=== PATIENT | female | born 1995 | race American Indian/Alaskan Native ===

== ENCOUNTER 2020-08-03 15:15 | Observation (INO) | payer OTHER ==
[2020-08-03 16:48] LABS: Bacteria,Urine 1+ /HPF (Negative); Bilirubin,Urine NEG (Negative); Blood,Urine MOD (Negative); Color,Urine Yellow (Yellow); Mucus,Urine FEW /HPF; Protein,Urine <15 mg/dL mg/dL (Negative); Urobilinogen,Urine < 2.0 mg/dL (<2.0)
[2020-08-03] MEDS: LACTATED RINGERS 1,000 ML IV SCH ×2 (18:03→20:49)
[2020-08-03] MEDS ORDERED: PE/MO/PET,WH 10 APPLIC/28 GM TUBE PR PRN (18:53)
[2020-08-03] MEDS ORDERED: WITCH HAZEL/ GLYCERIN PAD TP PRN (18:53)
--- NOTE | 2020-08-03 19:21 | Ultrasound Report ---
Limited obstetrical ultrasound with biophysical profile. HISTORY: Evaluate well-being. FINDINGS: A single viable intrauterine in the cephalic position has heart tones of 16 0 bpm. Amniotic fluid index is normal at 12.9 cm. Biophysical profile is normal at 8/8. IMPRESSION: 1. Normal biophysical profile. 2. Single viable intrauterine in the cephalic position with normal LELO. Signer Name: Delta Mireles MD Signed: 08/03/2020 7:17 PM Workstation Name: [id number]
[2020-08-04 08:12] VITALS: BP 131/81
--- NOTE | 2020-08-04 09:39 | Progress Note ---
Subjective - Subjective Date of service: 08/04/20 Interval history: OBS for NRFHT in OB triage BPP / NST reactive, Category 1 not in labor, and maternal well being reassuring overall Mayito Billings MD Objective - Vital Signs Vital Signs: Vital Signs - 12hr 08/03/20 08/03/20 08/03/20 21:41 21:46 21:51 Temperature Pulse Rate 58 L 103 H 107 H Respiratory Rate Blood Pressure Blood Pressure [Right] O2 Sat by Pulse 85 97 96 Oximetry 08/03/20 08/03/20 08/03/20 21:56 22:01 22:06 Temperature Pulse Rate 97 H 105 H 99 H Respiratory Rate Blood Pressure Blood Pressure [Right] O2 Sat by Pulse 97 96 97 Oximetry 08/03/20 08/03/20 08/03/20 22:10 22:11 22:16 Temperature Pulse Rate 97 H 94 H 98 H Respiratory Rate Blood Pressure Blood Pressure [Right] O2 Sat by Pulse 94 95 96 Oximetry 08/03/20 08/03/20 08/03/20 22:21 22:26 22:31 Temperature Pulse Rate 98 H 101 H 93 H Respiratory Rate Blood Pressure Blood Pressure [Right] O2 Sat by Pulse 97 97 98 Oximetry 08/03/20 08/03/20 08/03/20 22:36 22:41 22:46 Temperature Pulse Rate 94 H 95 H 95 H Respiratory Rate Blood Pressure Blood Pressure [Right] O2 Sat by Pulse 98 98 99 Oximetry 08/03/20 08/03/20 08/03/20 22:51 22:56 23:01 Temperature Pulse Rate 96 H 92 H 98 H Respiratory Rate Blood Pressure Blood Pressure [Right] O2 Sat by Pulse 97 96 97 Oximetry 08/03/20 08/03/20 08/03/20 23:06 23:11 23:18 Temperature Pulse Rate 101 H 100 H 89 Respiratory Rate Blood Pressure 125/80 Blood Pressure [Right] O2 Sat by Pulse 97 98 Oximetry 08/03/20 08/03/20 08/03/20 23:25 23:30 23:35 Temperature Pulse Rate 124 H 105 H 94 H Respiratory Rate Blood Pressure Blood Pressure [Right] O2 Sat by Pulse 86 99 98 Oximetry 08/03/20 08/03/20 08/03/20 23:40 23:45 23:48 Temperature Pulse Rate 104 H 108 H 83 Respiratory Rate Blood Pressure Blood Pressure [Right] O2 Sat by Pulse 98 98 94 Oximetry 08/03/20 08/03/20 08/04/20 23:50 23:55 00:00 Temperature Pulse Rate 100 H 86 99 H Respiratory Rate Blood Pressure Blood Pressure [Right] O2 Sat by Pulse 98 100 99 Oximetry 08/04/20 08/04/20 08/04/20 00:03 00:05 00:10 Temperature 98.3 F Pulse Rate 93 H 97 H Respiratory Rate Blood Pressure Blood Pressure [Right] O2 Sat by Pulse 99 96 Oximetry 08/04/20 08/04/20 08/04/20 00:15 00:20 00:25 Temperature Pulse Rate 100 H 104 H 94 H Respiratory Rate Blood Pressure Blood Pressure [Right] O2 Sat by Pulse 97 94 99 Oximetry 08/04/20 08/04/20 08/04/20 00:30 00:35 00:40 Temperature Pulse Rate 85 93 H 98 H Respiratory Rate Blood Pressure Blood Pressure [Right] O2 Sat by Pulse 97 98 98 Oximetry 08/04/20 08/04/20 08/04/20 00:45 00:50 00:55 Temperature Pulse Rate 101 H 107 H 100 H Respiratory Rate Blood Pressure Blood Pressure [Right] O2 Sat by Pulse 98 99 96 Oximetry 08/04/20 08/04/20 08/04/20 01:00 01:05 01:09 Temperature Pulse Rate 96 H 97 H 103 H Respiratory Rate Blood Pressure Blood Pressure [Right] O2 Sat by Pulse 95 97 87 Oximetry 08/04/20 08/04/20 08/04/20 01:10 01:15 01:20 Temperature Pulse Rate 98 H 96 H 95 H Respiratory Rate Blood Pressure Blood Pressure [Right] O2 Sat by Pulse 97 97 98 Oximetry 08/04/20 08/04/20 08/04/20 01:25 01:30 01:35 Temperature Pulse Rate 95 H 90 94 H Respiratory Rate Blood Pressure Blood Pressure [Right] O2 Sat by Pulse 100 99 99 Oximetry 08/04/20 08/04/20 08/04/20 01:40 01:45 01:50 Temperature Pulse Rate 89 87 100 H Respiratory Rate Blood Pressure Blood Pressure [Right] O2 Sat by Pulse 98 99 98 Oximetry 08/04/20 08/04/20 08/04/20 01:55 02:00 02:05 Temperature Pulse Rate 92 H 95 H 89 Respiratory Rate Blood Pressure Blood Pressure [Right] O2 Sat by Pulse 98 99 98 Oximetry 08/04/20 08/04/20 08/04/20 02:17 02:22 02:27 Temperature Pulse Rate 90 89 85 Respiratory Rate Blood Pressure Blood Pressure [Right] O2 Sat by Pulse 99 99 98 Oximetry 08/04/20 08/04/20 08/04/20 02:32 02:37 02:42 Temperature Pulse Rate 100 H 89 102 H Respiratory Rate Blood Pressure Blood Pressure [Right] O2 Sat by Pulse 99 98 99 Oximetry 08/04/20 08/04/20 08/04/20 02:47 02:52 02:57 Temperature Pulse Rate 82 101 H 83 Respiratory Rate Blood Pressure Blood Pressure [Right] O2 Sat by Pulse 98 97 96 Oximetry 08/04/20 08/04/20 08/04/20 03:02 03:07 03:12 Temperature Pulse Rate 90 93 H 101 H Respiratory Rate Blood Pressure Blood Pressure [Right] O2 Sat by Pulse 99 99 99 Oximetry 08/04/20 08/04/20 08/04/20 03:17 03:22 03:27 Temperature Pulse Rate 112 H 105 H 89 Respiratory Rate Blood Pressure Blood Pressure [Right] O2 Sat by Pulse 99 98 100 Oximetry 08/04/20 08/04/20 08/04/20 03:32 03:37 03:42 Temperature Pulse Rate 99 H 106 H 104 H Respiratory Rate Blood Pressure Blood Pressure [Right] O2 Sat by Pulse 100 99 99 Oximetry 08/04/20 08/04/20 08/04/20 03:47 04:04 04:09 Temperature Pulse Rate 101 H 89 94 H Respiratory Rate Blood Pressure Blood Pressure [Right] O2 Sat by Pulse 99 100 100 Oximetry 08/04/20 08/04/20 08/04/20 04:14 04:19 04:24 Temperature Pulse Rate 100 H 90 95 H Respiratory Rate Blood Pressure Blood Pressure [Right] O2 Sat by Pulse 98 100 99 Oximetry 08/04/20 08/04/20 08/04/20 04:29 04:32 04:34 Temperature Pulse Rate 92 H 100 H 96 H Respiratory Rate Blood Pressure Blood Pressure [Right] O2 Sat by Pulse 99 92 99 Oximetry 08/04/20 08/04/20 08/04/20 04:39 04:44 04:49 Temperature Pulse Rate 86 90 91 H Respiratory Rate Blood Pressure Blood Pressure [Right] O2 Sat by Pulse 98 98 97 Oximetry 08/04/20 08/04/20 08/04/20 04:54 04:59 05:04 Temperature Pulse Rate 90 90 117 H Respiratory Rate Blood Pressure Blood Pressure [Right] O2 Sat by Pulse 99 99 98 Oximetry 08/04/20 08/04/20 08/04/20 05:09 05:14 05:19 Temperature Pulse Rate 88 94 H 91 H Respiratory Rate Blood Pressure Blood Pressure [Right] O2 Sat by Pulse 97 97 97 Oximetry 08/04/20 08/04/20 08/04/20 05:24 05:29 05:34 Temperature Pulse Rate 88 92 H 90 Respiratory Rate Blood Pressure Blood Pressure [Right] O2 Sat by Pulse 98 96 97 Oximetry 08/04/20 08/04/20 08/04/20 05:39 05:44 05:49 Temperature Pulse Rate 90 89 87 Respiratory Rate Blood Pressure Blood Pressure [Right] O2 Sat by Pulse 97 97 97 Oximetry 08/04/20 08/04/20 08/04/20 05:54 05:59 06:04 Temperature Pulse Rate 94 H 90 90 Respiratory Rate Blood Pressure Blood Pressure [Right] O2 Sat by Pulse 98 98 97 Oximetry 08/04/20 08/04/20 08/04/20 06:09 06:13 06:18 Temperature Pulse Rate 88 110 H 66 Respiratory Rate Blood Pressure Blood Pressure [Right] O2 Sat by Pulse 97 90 82 L Oximetry 08/04/20 08/04/20 08/04/20 06:23 06:28 06:33 Temperature Pulse Rate 94 H 103 H 100 H Respiratory Rate Blood Pressure Blood Pressure [Right] O2 Sat by Pulse 99 99 100 Oximetry 08/04/20 08/04/20 08/04/20 06:38 06:43 06:45 Temperature Pulse Rate 96 H 98 H 91 H Respiratory Rate Blood Pressure 121/59 Blood Pressure [Right] O2 Sat by Pulse 99 99 Oximetry 08/04/20 08/04/20 08/04/20 06:46 06:48 06:52 Temperature 98.4 F Pulse Rate 91 H 93 H 98 H Respiratory 18 Rate Blood Pressure Blood Pressure [Right] O2 Sat by Pulse 94 98 94 Oximetry 08/04/20 08/04/20 08/04/20 06:53 06:58 07:03 Temperature Pulse Rate 86 84 88 Respiratory Rate Blood Pressure Blood Pressure [Right] O2 Sat by Pulse 98 99 95 Oximetry 08/04/20 08/04/20 08/04/20 07:06 07:08 07:13 Temperature Pulse Rate 86 96 H 90 Respiratory Rate Blood Pressure Blood Pressure [Right] O2 Sat by Pulse 94 96 95 Oximetry 08/04/20 08/04/20 08/04/20 07:15 07:18 07:23 Temperature Pulse Rate 90 87 98 H Respiratory Rate Blood Pressure Blood Pressure [Right] O2 Sat by Pulse 94 94 97 Oximetry 08/04/20 08/04/20 08/04/20 07:28 07:29 07:33 Temperature Pulse Rate 89 84 90 Respiratory Rate Blood Pressure Blood Pressure [Right] O2 Sat by Pulse 96 94 96 Oximetry 08/04/20 08/04/20 08/04/20 07:43 07:48 07:51 Temperature Pulse Rate 88 89 93 H Respiratory Rate Blood Pressure Blood Pressure [Right] O2 Sat by Pulse 95 96 92 Oximetry 08/04/20 08/04/20 08/04/20 07:53 07:58 08:03 Temperature Pulse Rate 40 L 93 H 100 H Respiratory Rate Blood Pressure Blood Pressure [Right] O2 Sat by Pulse 97 99 99 Oximetry 08/04/20 08/04/20 08/04/20 08:07 08:08 08:11 Temperature 99.0 F Pulse Rate 103 H 94 H 93 H Respiratory 22 Rate Blood Pressure 131/81 Blood Pressure 131/81 [Right] O2 Sat by Pulse 99 99 Oximetry 08/04/20 08/04/20 08/04/20 08:13 08:18 08:23 Temperature Pulse Rate 85 91 H 95 H Respiratory Rate Blood Pressure Blood Pressure [Right] O2 Sat by Pulse 99 99 100 Oximetry 08/04/20 08/04/20 08/04/20 08:28 08:33 08:38 Temperature Pulse Rate 102 H 98 H 88 Respiratory Rate Blood Pressure Blood Pressure [Right] O2 Sat by Pulse 99 100 99 Oximetry 08/04/20 08/04/20 08/04/20 08:43 08:48 08:53 Temperature Pulse Rate 89 98 H 88 Respiratory Rate Blood Pressure Blood Pressure [Right] O2 Sat by Pulse 99 100 99 Oximetry 08/04/20 08/04/20 08/04/20 08:58 09:03 09:08 Temperature Pulse Rate 89 105 H 99 H Respiratory Rate Blood Pressure Blood Pressure [Right] O2 Sat by Pulse 100 98 100 Oximetry 08/04/20 08/04/20 08/04/20 09:13 09:18 09:23 Temperature Pulse Rate 104 H 108 H 103 H Respiratory Rate Blood Pressure Blood Pressure [Right] O2 Sat by Pulse 99 98 99 Oximetry 08/04/20 08/04/20 09:28 09:35 Temperature Pulse Rate 98 H 91 H Respiratory Rate Blood Pressure Blood Pressure [Right] O2 Sat by Pulse 99 100 Oximetry - Labs Labs: Laboratory Results - last 24 hr 08/03/20 Unknown Urine Color Yellow Urine Turbidity Clear Urine pH 7.0 Ur Specific [place] 1.012 Urine Protein <15 mg/dl Urine Glucose (UA) Neg Urine Ketones Neg Urine Blood Mod Urine Nitrite Neg Urine Bilirubin Neg Urine Urobilinogen < 2.0 Ur Leukocyte Esterase Neg Urine WBC (Auto) 1.0 Urine RBC (Auto) 2.0 U Epithel Cells (Auto) 2.0 Urine Bacteria (Auto) 1+ Urine Mucus Few
[2020-08-04] MEDS ORDERED: NITROFURANTOIN MONOHYD/M-CRYST 100 MG CAP PO SCH (10:00)
== END 2020-08-04 10:10 | disposition home or self-care (01) ==
LOC: TRG 15:15 → LD 15:15 → APU 15:16 → TRG 18:47 → LD 18:47
PROVIDERS: ADMIT Obstetrics & Gynecology; ATTEND Obstetrics & Gynecology
DX: O36.8330 Maternal care for abnormalities of the fetal heart rate or rhythm, third trimester, not applicable or unspecified (principal); Z3A.36 36 weeks gestation of pregnancy
CPT/HCPCS: 76815; 76819; 81001; G0378; J7120; 59025; 96360

== ENCOUNTER 2020-08-04 23:21 | Outpatient (CLI) | payer OTHER ==
[2020-08-05] MEDS ORDERED: LACTATED RINGERS 1,000 ML IV ONE (04:15)
--- NOTE | 2020-08-05 04:33 | Ultrasound Report ---
ULTRASOUND OBSTETRIC LIMITED ULTRASOUND BIOPHYSICAL PROFILE INDICATION / CLINICAL INFORMATION: wellbeing. LELO Clinical Gestational Age (GA): weeks.days COMPARISON: None available. FINDINGS: BREATHING MOVEMENT = 2 GROSS BODY MOVEMENT = 2 TONE = 2 QUALITATIVE AMNIOTIC FLUID VOLUME = 2 TOTAL BIOPHYSICAL SCORE = 8/8 HEART RATE (beats per minute): 146 AMNIOTIC FLUID INDEX (cm) = 8.6 (normal = 7-24 cm) PRESENTATION: Cephalic. ADDITIONAL FINDINGS: None. IMPRESSION: 1. Biophysical Score = 8/8 2. LELO 8.6 cm. Signer Name: Felipe Anderson MD Signed: 08/05/2020 4:29 AM Workstation Name: [id number]
== END 2020-08-05 06:43 | disposition home or self-care (01) ==
LOC: TRG 23:21 → APU 08-05 03:19 → TRG 08-05 06:43
PROVIDERS: ATTEND Obstetrics & Gynecology
DX: O26.893 Other specified pregnancy related conditions, third trimester (principal); R25.2 Cramp and spasm; N89.8 Other specified noninflammatory disorders of vagina; Z3A.37 37 weeks gestation of pregnancy
CPT/HCPCS: 59025; 76815; 76819; 96360; J7120

== ENCOUNTER 2020-08-07 15:56 | Outpatient (CLI) | payer OTHER ==
[2020-08-07 18:06] VITALS: BP 128/76
--- NOTE | 2020-08-07 18:30 | Ultrasound Report ---
ULTRASOUND BIOPHYSICAL PROFILE INDICATION: BPP. COMPARISON: None available. FINDINGS: BREATHING MOVEMENT = 2 GROSS BODY MOVEMENT = 2 TONE = 2 QUALITATIVE AMNIOTIC FLUID VOLUME = 2 TOTAL BIOPHYSICAL SCORE = 11/19 AMNIOTIC FLUID INDEX (cm) = 10.9 PRESENTATION: Cephalic. HEART RATE (beats per minute): 167 IMPRESSION: 1. biophysical profile = 11/19 Signer Name: Mahesh Sage MD Signed: 08/07/2020 6:25 PM Workstation Name: [id number]
== END 2020-08-07 18:23 | disposition home or self-care (01) ==
LOC: TRG 15:56 → APU 15:57 → TRG 18:23
PROVIDERS: ATTEND Obstetrics & Gynecology
DX: Z34.93 Encounter for supervision of normal pregnancy, unspecified, third trimester (principal); Z3A.37 37 weeks gestation of pregnancy
CPT/HCPCS: 59025; 76815; 76819

== ENCOUNTER 2020-08-29 15:09 | Inpatient (IN) | payer OTHER ==
[2020-08-29] MEDS ORDERED: LIDOCAINE (2%) 20 MG/1 ML VIAL 20 ML MDV INFILTRATI ONE (19:02)
[2020-08-29] MEDS ORDERED: ePHEDrine SULFATE 50 MG/1 ML INJ IV PRN (19:02)
[2020-08-29] MEDS ORDERED: TERBUTALINE 1 MG/1 ML INJ SUB-Q PRN (19:02)
[2020-08-29] MEDS ORDERED: MINERAL OIL 30 ML ORAL LIQD PO PRN (19:02)
[2020-08-29] MEDS ORDERED: PROMETHAZINE 25 MG RECT SUPP PR PRN (19:02)
[2020-08-29] MEDS ORDERED: BUTORPHANOL 2 MG/1 ML INJ IV PRN ×2 (19:02)
[2020-08-29] MEDS ORDERED: ACETAMINOPHEN 325 MG TAB PO PRN (19:02)
[2020-08-29] MEDS ORDERED: ONDANSETRON 4 MG/2 ML INJ IV PRN (19:02)
--- NOTE | 2020-08-29 19:02 | History and Physical Report ---
History of Present Illness Date of examination: 08/29/20 Chief complaint: IOL History of present illness: 25 yo A1 at 40w4d (KADY 08/25/20) c/b Class III Obesity, hx microscopic hematuria (neg urology workup), SMA Carrier, h/o overactive bladder, Rubella NI presenting for postdates IOL. Intermittent contractions. Denies vaginal bleeding or leakage of fluid. Denies PIH symptoms. PNC labs reviewed, of note Rubella NI GBS neg Past History Past Medical History: other (hx microscopic hematuria, SMA carrier) Past Surgical History: D&C (for elective Ab) Family/Genetic History: hypertension Social history: no significant social history - Obstetrical History : 4 Para: 2 Hx # Term Pregnancies: 2 Induced : 1 Number of Living Children: 2 Medications and Allergies Allergies Allergy/AdvReac Type Severity Reaction Status Date / Time No Known Allergies Allergy Verified 08/07/20 16:52 Home Medications Medication Instructions Recorded Confirmed Last Taken Type Fluconazole [Diflucan TAB] 100 mg PO QDAY 3 Days tablet 08/04/20 08/07/20 Unknown Rx Nitrofurantoin Fisher/M-Cryst 100 mg PO Q12HR #14 capsule 08/04/20 08/07/20 Unknown Rx [Macrobid CAP] No.137/Iron/Folic Acd 1 tab PO DAILY 08/07/20 08/07/20 07/31/20 History [[facility] Tablet] Review of Systems All systems: negative (expect HPI) - Physical Exam Abdomen: Positive: normal appearance, normal bowel sounds, other (gravid) Uterus: Positive: enlarged - Obstetrical FHR: category 1 Uterine Contraction Monitor Mode: External Cervical Dilatation: 4 Cervical Effacement Percentage: 70 station: -3 Uterine Contraction Pattern: Irregular Results All other labs normal. Assessment and Plan - Patient Problems (1) Post-dates Current Visit: Yes Status: Acute Qualifiers: Post-term type: 40-42 weeks gestation Qualified Code(s): O48.0 - Post-term Plan to address problem: For IOL for postdates gestation, KADY 08/25/20. --GBS neg --Pitocin per protocol for IOL --Pain management per protocol, ok for epidural if desired --Anticipate
[2020-08-29 19:28] LABS: Hematocrit 22.7 % (30.3-42.9); Hemoglobin 7.6 gm/dl (10.1-14.3); Mean Corpuscular HGB Conc 34 % (30-34); Mean Corpuscular Volume 94 fl (79-97); Platelet Count 359 K/mm3 (140-440); Red Blood Count 2.41 M/mm3 (3.65-5.03); Red Cell Distribution Width 14.7 % (13.2-15.2)
[2020-08-29] MEDS ORDERED: OXYTOCIN DRIP 30 UNITS/500 ML BAG IV SCH (20:00)
[2020-08-29] MEDS: LACTATED RINGERS 1,000 ML IV SCH (20:30)
[2020-08-29] MEDS: OXYTOCIN DRIP 30 UNITS/500 ML BAG IV SCH (22:01)
[2020-08-30] MEDS: LACTATED RINGERS 1,000 ML IV SCH (01:06)
[2020-08-30] MEDS ORDERED: NalbUPHINE 10 MG/1 ML INJ IV PRN (01:42)
[2020-08-30] MEDS ORDERED: ePHEDrine SULFATE 50 MG/1 ML INJ IV PRN (01:42)
[2020-08-30] MEDS ORDERED: LACTATED RINGERS 250 ML IV SOLN IV ONE (01:42)
[2020-08-30] MEDS ORDERED: diphenhydrAMINE 50 MG/ML VIAL IV PRN (01:42)
[2020-08-30] MEDS ORDERED: NALOXONE 2 MG/2 ML INJ IV PRN (01:42)
[2020-08-30] MEDS ORDERED: LACTATED RINGERS 250 ML IV ONE (02:00)
[2020-08-30] MEDS ORDERED: fentaNYL-BUPIV 2 MCG/ML-0.125% 200 MCG/100 ML BAG EPIDURAL SCH (02:00)
--- NOTE | 2020-08-30 02:17 | Anesthesia Consultation ---
Anesthesia Consult and Med Hx Date of service: 08/30/20 - Airway Anesthetic Teeth Evaluation: Good ROM Head & Neck: Adequate Mental/Hyoid Distance: Adequate Mallampati Class: Class III Intubation Access Assessment: Possibly Difficult - Pulmonary Exam CTA: Yes - Cardiac Exam Cardiac Exam: RRR - Pre-Operative Health Status ASA Pre-Surgery Classification: ASA2 Proposed Anesthetic Plan: Epidural - Pulmonary Hx Smoking: No Hx Asthma: No COPD: No Hx Pneumonia: No Hx Sleep Apnea: No - Cardiovascular System Hx Hypertension: No Hx Heart Attack/AMI: No Hx Angina: No - Central Nervous System Hx Seizures: No Hx Psychiatric Problems: No - Gastrointestinal Hx Gastroesophageal Reflux Disease: No - Endocrine Hx Renal Disease: No Hx End Stage Renal Disease: No Hx Liver Disease: No Hx Insulin Dependent Diabetes: No Hx Non-Insulin Dependent Diabetes: No Hx Hypothyroidism: No Hx Hyperthyroidism: No - Hematic Hx Anemia: Yes Hx Sickle Cell Disease: No - Other Systems Hx Alcohol Use: No Hx Obesity: Yes
--- NOTE | 2020-08-30 02:18 | Progress Note ---
Labor Epidural - Labor Epidural Start Time: 01:54 Stop Time: 02:16 Performed by:: MARGAUX SYKES ([facility]) Procedure: Patient is requesting epidural for labor and pain. H&P, labs were reviewed. Patient IDed, H&P reviewed, all questions and concerns were answered, and consent was signed. Timeout was performed at bedside. Patient in sitting position. Sterile prep and drape was performed. 3ml of 1% lidocaine skin wheal at L[3]- L [4]. 18-gauge Tuohy epidural needle was advanced to loss of resistance with air technique 8cm. Negative CSF negative blood. Epidural catheter advanced to [14] centimeters. [negative] Aspiration [negative] test dose. Sterile dressing applied. Patient tolerated procedure.
[2020-08-30] MEDS ORDERED: hydrOXYzine PAMOATE 25 MG CAP PO NR (08:00)
--- NOTE | 2020-08-30 08:53 | Event Note ---
Date: 08/30/20 Pt had some anxiety earlier. EKG showed normal snius rhythm. PT feels better now. Vitals WNL. VE- 5/60/-2, AROM clear. Expectant care. Start pit in an hour if no cervical change.
[2020-08-30] MEDS: OXYTOCIN DRIP 30 UNITS/500 ML BAG IV SCH (10:23)
--- NOTE | 2020-08-30 10:52 | Electrocardiograph Report ---
[facility] Test Date: 2020-08-30 Test Time: 07:44:47 Pat Name: JARAD HORNE Department: Room: 2007 04 Gender: F Oral Surgeon: MARYJO : 1995 Requested By: MARK DE LA CRUZ Order Number: [id number] Reading MD: Gregorio Wallace Measurements Intervals [place] Rate: 78 P: 53 UT: 157 QRS: 0 QRSD: 87 T: 1 QT: 375 QTc: 428 Interpretive Statements Sinus rhythm No previous ECG available for comparison Electronically Signed On 08-30-2020 10:52:20 EDT by Gregorio Wallace
--- NOTE | 2020-08-30 10:53 | Progress Note ---
Assessment and Plan A: IUP @ 40 5/7 Weeks Category I Tracing Active Labor Morbid Maternal Obesity GBS Negative P: Internals x 2 placed Continue Pitocin Augmentation Multiple Maternal Position Changes Subjective - Subjective Date of service: 08/30/20 Patient reports: movement normal Objective - Vital Signs Vital Signs: Vital Signs - 12hr 08/30/20 08/30/20 08/30/20 01:47 01:48 01:52 Pulse Rate 87 96 H 111 H Blood Pressure 134/95 O2 Sat by Pulse 99 86 98 Oximetry 08/30/20 08/30/20 08/30/20 01:53 01:55 01:57 Pulse Rate 108 H 93 H 103 H Blood Pressure 139/84 139/71 130/73 O2 Sat by Pulse 99 Oximetry 08/30/20 08/30/20 08/30/20 01:59 02:01 02:02 Pulse Rate 105 H 109 H 106 H Blood Pressure 130/73 136/83 O2 Sat by Pulse 98 Oximetry 08/30/20 08/30/20 08/30/20 02:03 02:05 02:07 Pulse Rate 109 H 105 H 109 H Blood Pressure 136/81 126/73 O2 Sat by Pulse 99 Oximetry 08/30/20 08/30/20 08/30/20 02:12 02:17 02:18 Pulse Rate 106 H 103 H 108 H Blood Pressure 134/79 129/84 O2 Sat by Pulse 99 97 Oximetry 08/30/20 08/30/20 08/30/20 02:22 02:26 02:27 Pulse Rate 96 H 96 H 101 H Blood Pressure 129/60 125/61 O2 Sat by Pulse 98 99 Oximetry 08/30/20 08/30/20 08/30/20 02:31 02:32 02:36 Pulse Rate 99 H 100 H 100 H Blood Pressure 117/59 117/62 O2 Sat by Pulse 98 Oximetry 08/30/20 08/30/20 08/30/20 02:37 02:41 02:42 Pulse Rate 94 H 98 H 102 H Blood Pressure O2 Sat by Pulse 95 94 100 Oximetry 08/30/20 08/30/20 08/30/20 02:43 02:47 02:48 Pulse Rate 98 H 99 H 99 H Blood Pressure 127/70 113/67 O2 Sat by Pulse 95 Oximetry 08/30/20 08/30/20 08/30/20 02:51 02:52 02:57 Pulse Rate 96 H 94 H 97 H Blood Pressure 107/63 O2 Sat by Pulse 97 95 Oximetry 08/30/20 08/30/20 08/30/20 03:02 03:07 03:10 Pulse Rate 96 H 89 86 Blood Pressure 113/66 O2 Sat by Pulse 99 100 Oximetry 08/30/20 08/30/20 08/30/20 03:12 03:15 03:17 Pulse Rate 90 82 78 Blood Pressure 121/70 O2 Sat by Pulse 96 100 Oximetry 08/30/20 08/30/20 08/30/20 03:22 03:27 03:32 Pulse Rate 87 81 82 Blood Pressure 98/58 O2 Sat by Pulse 100 100 100 Oximetry 08/30/20 08/30/20 08/30/20 03:37 03:42 03:47 Pulse Rate 82 79 80 Blood Pressure O2 Sat by Pulse 100 100 100 Oximetry 08/30/20 08/30/20 08/30/20 03:52 03:57 04:02 Pulse Rate 84 79 89 Blood Pressure 102/53 O2 Sat by Pulse 100 99 100 Oximetry 08/30/20 08/30/20 08/30/20 04:07 04:12 04:17 Pulse Rate 86 83 83 Blood Pressure O2 Sat by Pulse 98 98 97 Oximetry 08/30/20 08/30/20 08/30/20 04:22 04:27 04:32 Pulse Rate 88 75 83 Blood Pressure 91/53 O2 Sat by Pulse 99 98 98 Oximetry 08/30/20 08/30/20 08/30/20 04:37 04:42 04:47 Pulse Rate 83 83 90 Blood Pressure O2 Sat by Pulse 98 98 98 Oximetry 08/30/20 08/30/20 08/30/20 04:52 04:57 05:02 Pulse Rate 84 79 92 H Blood Pressure 97/54 O2 Sat by Pulse 100 100 100 Oximetry 08/30/20 08/30/20 08/30/20 05:07 05:12 05:17 Pulse Rate 93 H 91 H 84 Blood Pressure O2 Sat by Pulse 99 100 100 Oximetry 08/30/20 08/30/20 08/30/20 05:22 05:23 05:27 Pulse Rate 77 86 85 Blood Pressure 102/50 O2 Sat by Pulse 100 100 Oximetry 08/30/20 08/30/2008/30/21 05:32 05:37 05:42 Pulse Rate 96 H 87 88 Blood Pressure O2 Sat by Pulse 98 100 99 Oximetry 08/30/20 08/30/20 08/30/20 05:46 05:51 05:53 Pulse Rate 87 82 90 Blood Pressure O2 Sat by Pulse 99 99 90 Oximetry 08/30/20 08/30/20 08/30/20 05:56 06:01 06:06 Pulse Rate 109 H 82 84 Blood Pressure O2 Sat by Pulse 79 L 100 100 Oximetry 08/30/20 08/30/20 08/30/20 06:11 06:16 06:21 Pulse Rate 89 86 85 Blood Pressure O2 Sat by Pulse 99 100 99 Oximetry 08/30/20 08/30/20 08/30/20 06:26 06:31 06:36 Pulse Rate 85 85 93 H Blood Pressure O2 Sat by Pulse 98 96 96 Oximetry 08/30/20 08/30/20 08/30/20 06:41 06:46 06:51 Pulse Rate 96 H 87 91 H Blood Pressure O2 Sat by Pulse 100 97 97 Oximetry 08/30/20 08/30/20 08/30/20 06:56 07:01 07:06 Pulse Rate 93 H 97 H 110 H Blood Pressure O2 Sat by Pulse 97 98 98 Oximetry 08/30/20 08/30/20 08/30/20 07:11 07:13 07:16 Pulse Rate 70 75 84 Blood Pressure 106/56 O2 Sat by Pulse 99 100 Oximetry 08/30/20 08/30/20 08/30/20 07:17 07:21 07:26 Pulse Rate 85 79 84 Blood Pressure O2 Sat by Pulse 92 100 100 Oximetry 08/30/20 08/30/20 08/30/20 07:31 07:36 07:41 Pulse Rate 103 H 94 H 89 Blood Pressure O2 Sat by Pulse 98 100 100 Oximetry 08/30/20 08/30/20 08/30/20 07:46 07:51 07:56 Pulse Rate 78 79 74 Blood Pressure O2 Sat by Pulse 100 100 100 Oximetry 08/30/20 08/30/20 08/30/20 07:59 08:01 08:06 Pulse Rate 78 78 79 Blood Pressure 109/59 O2 Sat by Pulse 99 100 Oximetry 08/30/20 08/30/20 08/30/20 08:11 08:16 08:21 Pulse Rate 76 86 87 Blood Pressure O2 Sat by Pulse 100 98 98 Oximetry 08/30/20 08/30/20 08/30/20 08:26 08:29 08:31 Pulse Rate 94 H 92 H 84 Blood Pressure 108/53 O2 Sat by Pulse 97 98 Oximetry 08/30/20 08/30/20 08/30/20 08:36 08:41 08:43 Pulse Rate 92 H 89 87 Blood Pressure O2 Sat by Pulse 100 97 89 Oximetry 08/30/20 08/30/20 08/30/20 08:46 08:51 08:56 Pulse Rate 84 87 90 Blood Pressure O2 Sat by Pulse 100 99 98 Oximetry 08/30/20 08/30/20 08/30/20 08:59 09:00 09:01 Pulse Rate 89 92 H 87 Blood Pressure 119/74 O2 Sat by Pulse 88 100 Oximetry 08/30/20 08/30/20 08/30/20 09:06 09:11 09:16 Pulse Rate 81 86 90 Blood Pressure O2 Sat by Pulse 99 100 94 Oximetry 08/30/20 08/30/20 08/30/20 09:21 09:26 09:31 Pulse Rate 92 H 90 103 H Blood Pressure O2 Sat by Pulse 100 100 98 Oximetry 08/30/20 08/30/20 08/30/20 09:36 09:41 09:46 Pulse Rate 90 89 85 Blood Pressure O2 Sat by Pulse 100 100 99 Oximetry 08/30/20 08/30/20 08/30/20 09:51 09:56 09:59 Pulse Rate 88 92 H 88 Blood Pressure 114/49 O2 Sat by Pulse 100 100 Oximetry 08/30/20 08/30/20 08/30/20 10:01 10:03 10:06 Pulse Rate 97 H 91 H 85 Blood Pressure O2 Sat by Pulse 98 94 100 Oximetry 08/30/20 08/30/20 08/30/20 10:11 10:16 10:21 Pulse Rate 100 H 81 86 Blood Pressure O2 Sat by Pulse 99 98 97 Oximetry 08/30/20 08/30/20 08/30/20 10:26 10:29 10:31 Pulse Rate 87 83 87 Blood Pressure 97/54 O2 Sat by Pulse 100 99 Oximetry 08/30/20 08/30/20 10:36 10:41 Pulse Rate 87 96 H Blood Pressure O2 Sat by Pulse 100 100 Oximetry - Exam Breasts: normal Cardiovascular: Regular rate Lungs: Normal air movement Abdomen: Present: normal appearance, soft Uterus: Present: normal, firm, fundal height above umbilicus FHR: category 1 Uterine Contraction Monitor Mode: Internal Cervical Dilatation: 6 (leaking a moderate amount of clear fluid) Cervical Effacement Percentage: 70 station: -2 Uterine Contraction Pattern: Irregular Uterine Tone Measurement Phase: Resting Uterine Contraction Intensity: Mild Extremities: normal - Labs Labs: Abnormal Labs 08/29/20 19:00 WBC 11.6 H RBC 2.41 L Hgb 7.6 L Hct 22.7 L Laboratory Results - last 24 hr 08/29/20 08/29/20 08/29/20 19:00 19:00 19:00 WBC 11.6 H RBC 2.41 L Hgb 7.6 L Hct 22.7 L MCV 94 MCH 32 MCHC 34 RDW 14.7 Plt Count 359 Syphilis IgG Antibody Nonreactive Blood Type O POSITIVE Antibody Screen Negative
--- NOTE | 2020-08-30 14:26 | Procedure Note ---
OB Delivery Note - Delivery Date of Delivery: 08/30/20 (1402) Surgeon: DINH BLUM Estimated blood loss: <100cc - Vaginal Delivery presentation: vertex Delivery position: OA Intrapartum events: mult.variable deceleratio Delivery induction: oxytocin Delivery augmentation: rupture of membranes, pitocin Delivery monitor: internal FHT, internal uterine Route of delivery: Delivery placenta: spontaneous Delivery cord: 3 umbilical vessels Episiotomy: none Delivery laceration: none Anesthesia: epidural Delivery comments: of a live 8'3 male infant over a intact perineum under epidural anesthesia with Apgars of 9 and 9 at 1402 on 08/30/2020. Infant directly to maternal abd/chest; skin to skin contact. Spontaneous delivery of placenta complete and intact with Alejandro side presenting at 1405. Fundus is firm and midline located 4 below the U. Lochia is scant. Delayed cord clamping and cutting; Cord cut by the Father of the Baby. Cord blood collected; Placenta discarded. - Infant A at 1 minute: 9 at 5 minutes: 9 Gender: Male (8'3)
[2020-08-30] MEDS ORDERED: IBUPROFEN 600 MG TAB PO ONE (15:46)
[2020-08-30] MEDS: IBUPROFEN 600 MG TAB PO SCH (21:35)
[2020-08-31] MEDS: HYDROcodone/ACETAMINOPHEN 5-325 MG TAB PO PRN ×2 (00:42→09:41)
[2020-08-31] MEDS: IBUPROFEN 600 MG TAB PO SCH ×2 (04:52→13:54)
--- NOTE | 2020-08-31 09:09 | Progress Note ---
Assessment and Plan PPD #1 A: S/P COVID 19 Indeterminate Asymptomatic anemia (Pre del Hgb 7.6) P: Continue routine pp care Repeat Covid 19 test H&H pending Ferrous Sulfate prescribed Advised foods high in Fe Subjective - Subjective Date of service: 08/31/20 Principal diagnosis: s/p Patient reports: appetite normal, voiding normally, pain well controlled, ambulating normally [place]: doing well, bottle feeding Objective - Vital Signs Latest vital signs: Vital Signs Temp Pulse Resp BP BP Pulse Ox 08/31/20 04:52 18 08/31/20 01:12 98.2 F 80 20 136/62 100 08/30/20 21:35 18 08/30/20 20:39 98.2 F 92 H 20 132/86 100 08/30/20 17:46 97.6 F 94 H 18 135/87 100 08/30/20 14:53 93 H 141/74 08/30/20 14:37 96 H 122/78 08/30/20 14:22 101 H 119/89 08/30/20 14:18 89 100 08/30/20 14:16 99 H 71 L 08/30/20 14:10 95 H 97 08/30/20 14:07 103 H 94 08/30/20 14:05 98 H 98 08/30/20 14:01 103 H 91 08/30/20 14:00 103 H 139/79 100 08/30/20 13:56 117 H 94 08/30/20 13:55 122 H 93 08/30/20 13:51 106 H 93 08/30/20 13:50 113 H 94 08/30/20 13:45 123 H 100 08/30/20 13:40 113 H 96 08/30/20 13:33 93 H 100 08/30/20 13:30 86 121/62 89 08/30/20 13:26 82 99 08/30/20 13:21 84 99 08/30/20 13:16 78 100 08/30/20 13:15 98.1 F 20 08/30/20 13:11 83 100 08/30/20 13:06 75 99 08/30/20 13:01 87 99 08/30/20 12:58 82 122/74 08/30/20 12:57 78 122/75 08/30/20 12:56 75 98 05/19/21 12:53 83 123/72 05/19/21 12:51 81 98 05/19/21 12:48 75 128/76 05/19/21 12:46 84 95 05/19/21 12:44 82 93 05/19/21 12:41 81 97 05/19/21 12:38 99 H 94 05/19/21 12:36 102 H 100 05/19/21 12:32 74 90 05/19/21 12:31 74 95 05/19/21 12:29 93 H 116/59 05/19/21 12:27 93 H 74 L 05/19/21 12:26 92 H 93 05/19/21 12:21 78 100 05/19/21 12:16 74 98 05/19/21 12:11 77 100 05/19/21 12:06 78 97 05/19/21 12:01 80 98 05/19/21 11:58 78 112/67 05/19/21 11:56 75 99 05/19/21 11:51 87 98 05/19/21 11:46 91 H 97 05/19/21 11:42 90 92 05/19/21 11:41 94 H 96 05/19/21 11:36 81 100 05/19/21 11:31 76 99 05/19/21 11:30 92 H 91 05/19/21 11:29 79 118/63 05/19/21 11:26 78 100 05/19/21 11:21 80 100 05/19/21 11:16 82 100 05/19/21 11:11 94 H 96 05/19/21 11:06 88 99 05/19/21 11:01 90 99 05/19/21 11:00 88 126/74 05/19/21 10:56 87 100 05/19/21 10:51 94 H 99 05/19/21 10:46 89 100 05/19/21 10:41 96 H 100 05/19/21 10:36 87 100 05/19/21 10:31 87 99 05/19/21 10:29 83 97/54 05/19/21 10:26 87 100 05/19/21 10:21 86 97 05/19/21 10:16 81 98 05/19/21 10:11 100 H 99 05/19/21 10:06 85 100 05/19/21 10:03 91 H 94 08/30/20 10:01 97 H 98 08/30/20 09:59 88 114/49 08/30/20 09:56 92 H 100 08/30/20 09:51 88 100 08/30/20 09:46 85 99 08/30/20 09:41 89 100 08/30/20 09:36 90 100 08/30/20 09:31 103 H 98 08/30/20 09:26 90 100 08/30/20 09:21 92 H 100 08/30/20 09:16 90 94 08/30/20 09:11 86 100 08/30/20 09:06 81 99 Intake and Output 08/30/20 08/31/20 08/31/20 22:59 06:59 14:59 Output Total 600 Balance -600 Output: Urine 600 Void 600 Other: Total, Output Amount 600 # Voids Void 3 - Exam Breasts: Present: normal Abdomen: Present: normal appearance, normal bowel sounds Vulva: right: ulceration, both: normal Uterus: Present: normal, firm, fundal height below umbilicus Extremities: Present: normal
[2020-08-31] MEDS ORDERED: FERROUS SULFATE 325 MG TAB PO SCH (10:00)
--- NOTE | 2020-08-31 11:52 | Post Anesthesia Evaluation ---
- Post Anesthesia Evaluation Patient Participated: Yes Airway Patent: Yes Stable Respiratory Function: Yes Nausea/Vomiting: No Temp > 96.8F: Yes Pain Manageable: Yes Adequeate Hydration: Yes Anesthesia Complications: No Block Receding Appropriately: Yes
--- NOTE | 2020-08-31 19:21 | Discharge Summary ---
Providers - Providers Date of Admission: 08/29/20 19:02 Date of discharge: 08/31/20 Attending physician: MARK DE LA CRUZ MD Primary care physician: MARK DE LA CRUZ MD Hospitalization Reason for admission: induction of labor Delivery: Episiotomy: none Laceration: none Other procedures: none complications: none, other (asymptomatic anemia, indeterminate covid 19 test. Pt refused post delivery H&H and repeat covid test. ) Discharge diagnosis: IUP at term delivered [place] baby: male Hospital course: Pt was admitted for an IOL r/t obesity and postdates. She had a w/o pp complications. Pt had a pre del hgb of 7.6 and she refused a post del H&H. Her covid 19 test was indeterminate and pt refused a retest. Anemia and it's effect on the body ie dizziness, fatigue etc. was discussed with pt. However, she still refused to have her blood drawn. She said she had already been "stuck too many times". Fe was prescribed and foods high in Fe were advised. Condition at discharge: Stable Disposition: DC-01 TO HOME OR SELFCARE Plan - Discharge Medications Prescriptions: Ferrous Sulfate [Feosol 325 MG tab] 325 mg PO BID #120 tablet Ibuprofen [Motrin 600 MG tab] 600 mg PO Q6HR #30 tablet - Provider Discharge Summary Activity: routine, no sex for 6 weeks, no heavy lifting 4 weeks, no strenuous exercise, other (fall prec discussed r/t anemia) Diet: routine Instructions: routine Additional instructions: [] Smoking cessation referral if applicable(refer to patient education folder for contact #) [] Refer to [facility] Booklet Call your doctor immediately for: * Fever > 100.5 * Heavy vaginal bleeding ( >1 pad per hour) * Severe persistent headache * Shortness of breath * Reddened, hot, painful area to leg or breast * Drainage or odor from incision. * Keep incision clean and dry at all times and follow doctor's instructions regarding bathing/showering - Follow up plan Follow up: MARK DE LA CRUZ MD [Primary Care Provider] - 6 Weeks Forms: [facility] Discharge Summary, Discharge Signature Page
[2020-08-31 19:27] VITALS: BP 130/78
== END 2020-08-31 17:15 | disposition home or self-care (01) | DRG 775 ==
LOC: LD 15:09 → TRG 15:09 → LD 15:10 → TRG 19:02 → OB 08-30 17:13
PROC: 3E033VJ Introduction of Other Hormone into Peripheral Vein, Percutaneous Approach (ICD-10-PCS; principal; 2020-08-30)
PROC: 10E0XZZ Delivery of Products of Conception, External Approach (ICD-10-PCS; 2020-08-30)
PROC: 3E0R3BZ Introduction of Anesthetic Agent into Spinal Canal, Percutaneous Approach (ICD-10-PCS; 2020-08-30)
PROC: 00HU33Z Insertion of Infusion Device into Spinal Canal, Percutaneous Approach (ICD-10-PCS; 2020-08-30)
PROC: 10907ZC Drainage of Amniotic Fluid, Therapeutic from Products of Conception, Via Natural or Artificial Opening (ICD-10-PCS; 2020-08-30)
DX: O76 Abnormality in fetal heart rate and rhythm complicating labor and delivery (principal); O48.0 Post-term pregnancy; O99.02 Anemia complicating childbirth; Z20.822 Contact with and (suspected) exposure to COVID-19; O99.214 Obesity complicating childbirth; E66.01 Morbid (severe) obesity due to excess calories; Z3A.40 40 weeks gestation of pregnancy; Z37.0 Single live birth; Z82.49 Family history of ischemic heart disease and other diseases of the circulatory system; Z79.899 Other long term (current) drug therapy
CPT/HCPCS: 36415; 85027; 86592; 86706; 86762; 86850; 86900; 86901; 87806; 93005; 99211; G0378; G0463; J2590; J7120; U0003